=== PATIENT | male | born 2000 | race African-American/Black ===

== ENCOUNTER 2019-02-10 20:29 | Emergency (ER) | payer BC ==
[~2019-02-10] VITALS: Ht 182.9 cm; Wt 73.0 kg
--- NOTE | 2019-02-10 21:15 | NUR ---
BIBS FROM HOME. C/O L TESTICLE PAIN X 1 DAY RADIATING TO [facility] ABD 09/22 TO ER BED 2 VSS, AWAITING MED EVAL
--- NOTE | 2019-02-10 21:46 | NUR ---
PT TAKEN TO CT
[2019-02-10 22:22] LABS: BASOPHILS # (AUTO) 0.1 /CMM (0.0-0.2); BASOPHILS % (AUTO) 0.9 % (0.0-2.0); EOSINOPHILS % (AUTO) 0.6 % (0.0-6.0); HEMATOCRIT 47 % (39-51); HEMOGLOBIN 15.3 g/dL (13.5-17.5); LYMPHOCYTES # (AUTO) 2.6 /CMM (0.8-4.8); LYMPHOCYTES % (AUTO) 27.1 % (20.0-44.0); MEAN CORPUSCULAR HGB CONC 33 g/dl (31.0-36.0); MEAN CORPUSCULAR VOLUME 88 fL (80-96); MONOCYTES # (AUTO) 0.6 /CMM (0.1-1.30); MONOCYTES % (AUTO) 6.4 % (2.0-12.0); NEUTROPHILS # (AUTO) 6.3 /CMM (1.8-8.9); PLATELET COUNT (AUTO) 182 /CMM (150-450); WHITE BLOOD COUNT (AUTO) 9.8 K/uL (4.3-11.0)
[2019-02-10 22:32] LABS: CALCIUM, SERUM 9.1 mg/dL (8.5-10.1); CREATININE 0.9 mg/dL (0.6-1.3)
[2019-02-10 22:32] LABS: APPEARANCE,URINE Clear (CLEAR); BILIRUBIN,URINE Negative (NEGATIVE); BLOOD, URINE Negative Ery/uL (NEGATIVE); COLOR,URINE Yellow (YELLOW); KETONES,URINE Negative (NEGATIVE); LEUKOCYTE ESTERASE ,URINE Negative (NEGATIVE); NITRITE, URINE Negative (NEGATIVE); PH,URINE 5.5 (5.0-8.0); PROTEIN,URINE Negative (NEGATIVE); UGLUCOSE Negative (NEGATIVE); UROBILINOGEN,URINE 0.2 EU/dL (0.2)
[2019-02-10 22:37] LABS: ALBUMIN 4.6 g/dL (3.4-5.0); BILIRUBIN,DIRECT 0.1 mg/dL (0.0-0.2); BILIRUBIN,TOTAL 0.3 mg/dL (0.2-1.0); TOTAL PROTEIN, SERUM 8.3 g/dL (6.4-8.2)
[2019-02-10] MEDS ORDERED: CEFTRIAXONE 500 MG VIAL ONE (23:00)
[2019-02-10] MEDS ORDERED: LIDOCAINE 1% INJ 50 ML MDV IJ ONE (23:00)
[2019-02-10] MEDS ORDERED: CEFTRIAXONE 1 G VIAL IM ONE (23:00)
--- NOTE | 2019-02-10 23:11 | NUR ---
Patient discharged to home in stable condition. Written and verbal after care instructions given. Patient verbalizes understanding of instruction.
[2019-02-10 23:13] VITALS: BP 112/69
== END 2019-02-10 23:14 | disposition home or self-care (01) ==
LOC: ER 20:34
DX: N45.1 Epididymitis (principal)
CPT/HCPCS: 36415; 74176; 76870; 80048; 80076; 81001; 83690; 85025; 96372; 99284; J0696; J3490; 81000-TC